=== PATIENT | female | born 1960 | race Caucasian/White ===

== ENCOUNTER → 2021-09-20 | Outpatient (CLI) | payer BC ==
[2021-09-20 15:35] LABS: ABSOLUTE NEUTROPHILS 4.4 thou/uL (1.4-8.2); BASOPHILS 1.5 % (0.0-2.0); EOSINOPHILS 4.2 % (0.0-3.0); HEMATOCRIT 38.4 % (37.0-47.0); HEMOGLOBIN 12.9 gm/dL (12.0-15.0); LYMPHOCYTES 28.4 % (24.0-44.0); MCH 30.1 pg (26.0-34.0); MCHC 33.7 g/dL (28.0-37.0); MCV 89.4 fL (80.0-100.0); PLATELET COUNT 376 thou/uL (150-400); POLYS 58.9 % (36.0-66.0); RBC 4.29 mil/uL (4.20-5.00); RDW 13.1 % (10.5-14.5); WBC 7.6 thou/uL (4.0-11.0)
[2021-09-20 15:52] LABS: ALBUMIN 3.3 g/dL (3.4-5.0); ANION GAP 9 mmol/L (7-16); BUN 14 mg/dL (7-18); CALCIUM 8.7 mg/dL (8.5-10.1); CHLORIDE 103 mmol/L (98-107); CO2 28 mmol/L (21-32); CREATININE 0.7 mg/dL (0.6-1.0); GLUCOSE 87 mg/dL (74-106); SGOT 30 U/L (15-37); SGPT 34 U/L (30-65); SODIUM 140 mmol/L (136-145); TOTAL BILIRUBIN 0.3 mg/dL (0.2-1.0); TOTAL PROTEIN 7.4 g/dL (6.4-8.2)
--- NOTE | 2021-09-20 17:16 | NUR ---
PT HERE FOR HER FIRST OUTPATIENT VISIT WITH US S/P DISMISSAL FROM [facility] FOR A PELVIC INFECTION AND SEPSIS. SHE HAD A PICC LINE PLACED THERE AND WAS DISMISSED ON TID IV ANTIBIOTICS. STATES THIS IS GOING WELL FOR HER. SHE IS HERE FOR WEEKLY PICC DRSG CHANGE AND LABS. PICC EXIT SITE SLIGHTLY PINK, NO DRAINAGE. NO BIOPATCH WAS UNDER THE ORIGINAL OPSITE DRESSING BUT DRESSING WAS INTACT. BRISK BLOOD RETURN NOTED, LABS DRAWN. NEW DRESSING DOES INCLUDE A BIOPATCH. PT ALSO HAD ME LOOK AT HER INES SITE. STATES SHE WILL SEE THE SURGEON IN ONE WEEK. DRESSING CHANGED--PLACED GAUZE WITH AN OPSITE COVER. INES IS SUTURED IN PLACE. PT STATES DTR CAN HELP HER WATCH THIS AND CHANGE THE DRESSING SINCE SHE CANNOT SEE IT. PT STATES SHE WAS NOT GIVEN ANY INSTRUCTIONS ON WHAT TO DO WITH THE INES. ADVISED PT TO ASK THE SURGEON. I DID SEND HOME SOME MORE OPSITE DRESSINGS AND PREVANTICS WIPES TO CLEANSE SITE. REMINDED PT TO NOT SOAK IN A TUB BUT SHOWERING SHOULD BE OK. PT SEES DR. GREGORIO TOMORROW. WILL CALL US BACK AFTER THAT VISIT TO SCHEDULE HER NEXT VISIT WITH US. SENT PT HOME WITH A HISTORY ASSESSMENT FORM SINCE SHE DID NOT HAVE TIME TO STAY TODAY TO UPDATE HER HISTORY. DISMISSED IN STABLE CONDITION.
== END ==
LOC: OPONC 13:31
PROVIDERS: ATTEND Specialist
DX: N73.9 Female pelvic inflammatory disease, unspecified (principal)

== ENCOUNTER → 2021-09-27 | Outpatient (CLI) | payer BC ==
[~2021-09-27] MED LIST: DAILY VITAMIN1 EAC6 PO; IBUPROFEN200 M1 PO; MEROPENEM1 GM IV; VITAMIN C1000 MG PO; ZICAM PO
--- NOTE | 2021-09-27 10:30 | NUR ---
HERE FOR WEEKLY PICC LINE DRESSING CHANGE AND LABS. SITE LOOKS GOOD. NO REDNESS TODAY. FLUSHES EASILY AND PT STATES HER INFUSIONS ARE GOING WELL AT HOME BUT UNABLE TO GET A BLOOD RETURN TODAY. [facility] LABS PERIPHERALLY. PT SEEING DR. GREGORIO AND DR. BRODIE ALVAREZ TODAY WITH DECISION TO BE MADE ON LENGTH OF TREATMENT AND WHEN SURGERY WILL BE SCHEDULED. WILL CHECK FOR BLOOD FLOW AGAIN NEXT WEEK IF PT STILL HAS HER LINE AND PURSUE CATH JB AT THAT TIME IF STILL NO BLOOD RETURN. PT REPORTS DOING WELL AT HOME. DENIES N/V, FEVER/CHILLS. DOES HAVE LOOSE STOOLS PER OSTOMY BUT STATES PREFERS THEM THIS WAY. ENCOURAGED MORE PROTEIN INTAKE TO SUPPORT WOUND HEALING (ALBUMIN IS LOW). PT STILL HAS INES DRAIN IN BUTTOCKS. NOT ASSESSED TODAY PT IS GOING TO SEE BOTH HER PHYSICIANS TODAY AND PLANS TO ASK THEM IF IT CAN BE PULLED. STATES HAS HAD NO OUTPUT NOW FOR DAYS. PT WILL CALL BACK TO RESCHEDULE IF NEEDED AGAIN NEXT WEEK. DISMISSED IN STABLE CONDITION.
[2021-09-27 10:47] LABS: ABSOLUTE NEUTROPHILS 2.2 thou/uL (1.4-8.2); BASOPHILS 1.3 % (0.0-2.0); EOSINOPHILS 6.9 % (0.0-3.0); HEMATOCRIT 37.7 % (37.0-47.0); HEMOGLOBIN 12.3 gm/dL (12.0-15.0); LYMPHOCYTES 27.6 % (24.0-44.0); MCH 29.6 pg (26.0-34.0); MCHC 32.6 g/dL (28.0-37.0); MCV 90.7 fL (80.0-100.0); MONOCYTES 9.3 % (1.0-8.0); PLATELET COUNT 262 thou/uL (150-400); POLYS 54.9 % (36.0-66.0); RBC 4.16 mil/uL (4.20-5.00); RDW 13.1 % (10.5-14.5)
[2021-09-27 11:01] LABS: ANION GAP 6 mmol/L (7-16); BUN 12 mg/dL (7-18); CALCIUM 8.3 mg/dL (8.5-10.1); CHLORIDE 104 mmol/L (98-107); CO2 29 mmol/L (21-32); CREATININE 0.8 mg/dL (0.6-1.0); GLUCOSE 105 mg/dL (74-106); POTASSIUM 4.3 mmol/L (3.5-5.1); SGOT 26 U/L (15-37); SGPT 21 U/L (30-65); SODIUM 139 mmol/L (136-145); TOTAL BILIRUBIN 0.3 mg/dL (0.2-1.0); TOTAL PROTEIN 6.7 g/dL (6.4-8.2)
== END ==
LOC: OPONC 09:51
PROVIDERS: ATTEND Specialist
DX: N73.9 Female pelvic inflammatory disease, unspecified (principal)
CPT/HCPCS: 91018

== ENCOUNTER → 2021-10-02 | Outpatient (CLI) | payer BC ==
--- NOTE | 2021-10-02 14:02 | NUR ---
HERE FOR WEEKLY PICC LINE DRESSING CHANGE AND LAB DRAW. PICC WITH BRISK BLOOD RETURN TODAY. SITE LOOKS GOOD. PT HAVING A CT OF ABD/PELVIS THEN SEEING DR. GREGORIO TOMORROW WITH HOPES OF HAVING PICC AND INES DRAIN REMOVED. PT REPORTS FEELING WELL, EATING WELL. DENIES N/V, FEVERS, PAIN OTHER THAN OCCASIONAL SCIATIC PAIN DOWN LEFT LEG--SIDE ASSOCIATED WITH THE DRAIN. FEELS THIS IS CAUSING AGGRAVATION AT TIME. NO DRAINAGE NOTED IN DRAIN. PT DISMISSED IN STABLE CONDITION. WILL CALL IF NEEDS TO RETURN.
[2021-10-02 14:18] LABS: ABSOLUTE NEUTROPHILS 2.7 thou/uL (1.4-8.2); BASOPHILS 1.6 % (0.0-2.0); EOSINOPHILS 5.4 % (0.0-3.0); HEMATOCRIT 39.1 % (37.0-47.0); HEMOGLOBIN 12.9 gm/dL (12.0-15.0); LYMPHOCYTES 31.8 % (24.0-44.0); MCH 29.7 pg (26.0-34.0); MCV 90.1 fL (80.0-100.0); MONOCYTES 9.9 % (1.0-8.0); PLATELET COUNT 211 thou/uL (150-400); POLYS 51.3 % (36.0-66.0); RBC 4.34 mil/uL (4.20-5.00); WBC 5.3 thou/uL (4.0-11.0)
[2021-10-02 14:33] LABS: ALBUMIN 3.3 g/dL (3.4-5.0); ANION GAP 4 mmol/L (7-16); BUN 16 mg/dL (7-18); CALCIUM 8.7 mg/dL (8.5-10.1); CHLORIDE 103 mmol/L (98-107); CO2 29 mmol/L (21-32); CREATININE 0.8 mg/dL (0.6-1.0); GLUCOSE 93 mg/dL (74-106); SGOT 39 U/L (15-37); SGPT 32 U/L (30-65); SODIUM 136 mmol/L (136-145); TOTAL BILIRUBIN 0.3 mg/dL (0.2-1.0); TOTAL PROTEIN 7.3 g/dL (6.4-8.2)
== END ==
LOC: OPONC 11:26
PROVIDERS: ATTEND Specialist
DX: K57.92 Diverticulitis of intestine, part unspecified, without perforation or abscess without bleeding (principal)